=== PATIENT | female | born 1945 | race Caucasian/White ===

== ENCOUNTER 2024-03-09 17:08 | Inpatient (IN) | payer MEDICARE, BC ==
[2024-03-09 17:43] LABS: Bacteria/HPF None Seen HPF (None Seen); Bilirubin Negative (Negative); Blood, Urine Negative (Negative); CAUTI Indications for Culture Alt mental st,lethar; Clarity Clear (Clear); Glucose, Urine (Dipstick) Normal (Negative); Ketone, Urine Negative (Negative); Leukocyte Negative Leu/uL (Negative); Nitrite Negative (Negative); Protein, Urine (Dipstick) Negative (Neg-Trace); RBC/HPF 0-3 HPF (0-3); Specific Gravity, Urine 1.013 (1.002-1.036); Squamous Epithelial None Seen HPF (0-3); Urobilinogen Normal mg/dL (Less than 2); WBC/HPF 0-3 HPF (0-3); pH, Urine 5.5 (5.0-9.0)
[2024-03-09 17:44] LABS: Urine Culture Reflex No No
[2024-03-09 17:46] LABS: Amphetamine Not Detected (NotDetected); Barbiturates Screen Not Detected (NotDetected); Benzodiazepine Screen Not Detected (NotDetected); Cocaine Metabolite Screen Not Detected (NotDetected); Methadone Not Detected (NotDetected); Methamphetamine Not Detected (NotDetected); Opiate Screen Not Detected (NotDetected); Oxycodone Screen Not Detected (NotDetected); Phencyclidine (PCP) Not Detected (NotDetected); THC/Cannabinoid Screen Not Detected (NotDetected); Tricyclic Screen Not Detected (NotDetected)
[2024-03-09 17:50] LABS: #Basophils 0.03 10x3/uL (0.0-0.2); %Basophils 0.5 % (0.0-1.0); %Eosinophils 4.2 % (0.0-10.0); %Lymphocytes 11.7 % (21.0-51.0); %Monocytes 7.3 % (0.0-10.0); Hematocrit 37.4 % (36.0-47.0); Hemoglobin 12.5 g/dL (12.0-16.0); Mean Corpuscular HGB CONC 33.4 g/dL (32.0-36.0); Mean Corpuscular Hemoglobin 29.6 pg (27.0-31.0); Mean Corpuscular Volume 88.6 fL (78.0-98.0); Mean Platelet Volume 11.1 fL (7.4-10.4); Platelet Count 266 10x3/uL (130-400); RBC Distribution Width 13.4 % (11.5-14.5); Red Blood Cell (RBC) Count 4.22 mill/uL (4.20-5.40)
[2024-03-09 18:02] LABS: Lipase 14 U/L (8-78)
[2024-03-09 18:04] LABS: Acetaminophen Less than 10 mcg/mL (Less than 10); Alcohol Less than 10.0 mg/dL (Less than 10); Salicylate Less than 8.0 mg/dL (Less than 8.0)
[2024-03-09 18:07] LABS: ALT (SGPT) 15 U/L (8-55); AST (SGOT) 27 U/L (5-34); Albumin 3.3 g/dL (3.4-4.8); Alkaline Phosphatase 78 U/L (40-110); Anion Gap 12 mmol/L (10-20); BUN (Urea Nitrogen) 14 mg/dL (9.8-20.1); Bilirubin, Total 0.4 mg/dL (0.2-1.2); CK (CPK) 123 U/L (29-168); Calc. Creatinine Clearance 0 mL/min (70-130); Calcium 8.7 mg/dL (7.8-10.44); Carbon Dioxide 22 mmol/L (23-31); Chloride 111 mmol/L (98-107); Estimated GFR 65; Globulin 2.3 g/dL (2.4-3.5); Glucose 142 mg/dL (83-110); Potassium 3.5 mmol/L (3.5-5.1); Protein, Total 5.6 g/dL (5.8-8.1); Sodium 141 mmol/L (136-145)
[2024-03-09 18:10] LABS: Troponin I Less than 0.010 ng/mL (< 0.028)
[2024-03-09] MEDS ORDERED: levETIRAcetam 500 MG (5 mL) VIAL ONE (18:12)
[2024-03-09 18:13] LABS: Analyzer IN Cardio ER
[2024-03-09 18:14] LABS: Actual Bicarbonate (HCO3v) 23.4 mEq/L (22-28); Base Excess -2.8 mEq/L (-2.0 to +3.0); Calcium, Ionized (venous) 1.14 mmol/L (1.16-1.32); Chloride (VBG) 108 mmol/L (98-106); Hematocrit-VBG 39 % (36.0-47.0); Hemoglobin (Hb) 13.3 g/dL (11.7-16.1); Potassium (VBG) 3.38 mmol/L (3.70-5.30); Sodium 142 mmol/L (133-146); pH (venous) 7.321 (7.32-7.43)
[2024-03-09 18:49] LABS: PTT 24.9 sec (22.9-36.1)
[2024-03-09] MEDS ORDERED: EPINEPHrine 1 MG/ML VIAL ONE (18:49)
[2024-03-09] MEDS ORDERED: Vancomycin 1 GM VIAL ONE (18:50)
[2024-03-09] MEDS ORDERED: Lidocaine 1% (PF) 30 ML VIAL ONE (18:50)
[2024-03-09] MEDS ORDERED: Thrombin 5000 UNITS/5 ML VIAL ONE (18:50)
[2024-03-09] MEDS ORDERED: Mannitol 12.5 GM/50 ML ONE ×2 (18:57→19:04)
[2024-03-09] MEDS ORDERED: PROPOFOL 20 ML ONE (19:25)
[2024-03-09] MEDS ORDERED: fentaNYL PF 100 MCG/2 ML SYRINGE ONE ×2 (19:25→20:49)
[2024-03-09] MEDS ORDERED: Lidocaine 2% PF 5 ML VIAL ONE (19:25)
[2024-03-09] MEDS ORDERED: Rocuronium Bromide 10 MG/ML (10ML VIAL) ONE (19:27)
[2024-03-09] MEDS ORDERED: SUCCINYLCHOLINE/SOD CL,ISO/PF 200 MG/10 ML SYRINGE FS ONE (19:27)
[2024-03-09] MEDS ORDERED: PHENYLEPHRINE-NS 100 MCG/ML 10 ML SYRINGE ONE (19:47)
[2024-03-09] MEDS ORDERED: CEFAZOLIN 1 GM VIAL ONE (19:53)
[2024-03-09] MEDS ORDERED: ePHEDrine Sulfate 50 MG/10 ML VIAL ONE (19:58)
[2024-03-09] MEDS ORDERED: Phenylephrine 10 MG/ML VIAL ONE ×2 (20:09)
[2024-03-09] MEDS ORDERED: Dexamethasone 20 MG/5 ML VIAL ONE (20:25)
[2024-03-09] MEDS ORDERED: Dexmedetomidine 200 MCG/2 ML VIAL ONE ×2 (20:25→20:28)
[2024-03-09] MEDS ORDERED: Sodium Chloride 0.9% 100 ML ONE (20:28)
[2024-03-09] MEDS ORDERED: Sodium Chloride 0.9% 250 ML 500 ML ONE (20:28)
[2024-03-09] MEDS ORDERED: Acetaminophen 650 MG Suppository PR PRN (21:11)
[2024-03-09] MEDS ORDERED: Acetaminophen 325 MG TAB PO PRN (21:11)
[2024-03-09] MEDS ORDERED: hydrALAZINE 20 MG/ML VIAL SLOW IVP PRN (21:11)
[2024-03-09] MEDS ORDERED: Propofol BOLUS 1,000 MG/100 ML VIAL IV PRN (21:15)
[2024-03-09] MEDS ORDERED: Propofol 1,000 MG/100 ML VIAL IV PRN (21:15)
[2024-03-09] MEDS ORDERED: Morphine 2 MG/ML VIAL SLOW IVP PRN (21:15)
[2024-03-09] MEDS ORDERED: niCARdipine 25 MG in Sodium Chloride 0.9% 250 ML 250 ML IVPB PRN (21:15)
[2024-03-09] MEDS ORDERED: Fentanyl BOLUS 250 ML IVPB PRN (21:15)
[2024-03-09] MEDS ORDERED: Lorazepam 2 MG/ML VIAL SLOW IVP PRN (21:15)
[2024-03-09] MEDS ORDERED: DISCONTINUE PREVIOUS NARCOTIC PAIN MEDICATIONS AND BENZODIAZEPINES FS SCH (21:15)
[2024-03-09 21:32] LABS: Actual Bicarbonate (HCO3a) 20.4 mEq/L (22-28); CO2 Tension 27.7 mmHg (35.0-45.0); Carboxyhemoglobin (COHb) 0.3 gm% (0.0-3.0); Hematocrit-ABG 34 % (36.0-47.0); Hemoglobin (Hb) 11.5 g/dL (12.0-16.0); Potassium - ABG Lab 3.49 mmol/L (3.70-5.30); pH, Arterial 7.484 (7.35-7.45)
[2024-03-09 21:33] LABS: ALV-art Gradient 191.875 mmHg (0-20); Analyzer IN Cardio ER; Calcium, Ionized (arterial) 1.11 mmol/L (1.12-1.30); Puncture Site Arterial Line
[2024-03-09] MEDS: NOREPINEPHRINE 8 MG/250 ML-D5W 250 ML IVPB SCH (21:40)
[2024-03-09] MEDS: Albumin 25% 25 GM (100 mL) BOT IVPB SCH (21:41)
[2024-03-09] MEDS: Albumin 25% 100 ML ONE (21:42)
[2024-03-09] MEDS: Sodium Chloride 0.9% 1,000 ML IV SCH (21:43)
[2024-03-09] MEDS: Ventilator Sedation Protocol 1 EACH FS ONE (21:54)
[2024-03-09] MEDS: Fentanyl CADD 100 ML IV SCH (22:26)
[2024-03-09] MEDS: levETIRAcetam 500 MG (5 mL) VIAL SLOW IVP SCH (22:26)
[2024-03-09 22:41] VITALS: BMI 20.8
[2024-03-09] MEDS ORDERED: Dextrose 50% Abboject 50 ML SYRINGE SLOW IVP PRN (22:59)
[2024-03-09] MEDS ORDERED: Dextrose 5% in Water 1,000 ML IV PRN (22:59)
[2024-03-09] MEDS ORDERED: Glucagon 1 MG/ML KIT IM PRN (22:59)
[2024-03-09] MEDS ORDERED: Electrolyte Replacement Protocol 1 EACH FS SCH (23:23)
[2024-03-09] MEDS: Potassium Chloride 20 MEQ in Premix 1 BAG IVPB SCH (23:39)
[2024-03-10 04:02] LABS: #Basophils Less than 0.03 10x3/uL (0.0-0.2); #Eosinophils Less than 0.03 10x3/uL (0.0-0.7); %Basophils 0.1 % (0.0-1.0); %Lymphocytes 5.7 % (21.0-51.0); %Monocytes 2.8 % (0.0-10.0); %Neutrophils 90.8 % (42.0-75.0); Hemoglobin 10.5 g/dL (12.0-16.0); Mean Corpuscular HGB CONC 33.9 g/dL (32.0-36.0); Mean Corpuscular Hemoglobin 29.9 pg (27.0-31.0); Mean Corpuscular Volume 88.3 fL (78.0-98.0); Mean Platelet Volume 11.1 fL (7.4-10.4); Platelet Count 194 10x3/uL (130-400); RBC Distribution Width 13.4 % (11.5-14.5); Red Blood Cell (RBC) Count 3.51 mill/uL (4.20-5.40)
[2024-03-10 04:22] LABS: Anion Gap 12 mmol/L (10-20); BUN (Urea Nitrogen) 10 mg/dL (9.8-20.1); Calc. Creatinine Clearance 17 mL/min (70-130); Calcium 8.3 mg/dL (7.8-10.44); Carbon Dioxide 19 mmol/L (23-31); Chloride 112 mmol/L (98-107); Estimated GFR 67; Glucose 163 mg/dL (83-110); Sodium 139 mmol/L (136-145)
[2024-03-10] MEDS: CEFAZOLIN 2 GM in Sodium Chloride 0.9% 100 ML IVPB SCH (05:02)
[2024-03-10] MEDS: Famotidine/PF 20 mg/2ml Vial SLOW IVP SCH (07:41)
[2024-03-10] MEDS: levETIRAcetam 500 MG (5 mL) VIAL SLOW IVP SCH (07:41)
[2024-03-10] MEDS: FLU (Fluarix Triv) TS24-25(6MOS UP)/PF 45 MCG/0.5 ML Syringe IM ONE (07:43)
[2024-03-10] MEDS ORDERED: Morphine 2 MG/ML VIAL SLOW IVP PRN (08:56)
[2024-03-10] MEDS: Ondansetron PF 4 MG/2 ML Vial IVP PRN (08:56)
[2024-03-10] MEDS ORDERED: Acetaminophen/Codeine 30-300mg Tablet PO PRN (08:56)
[2024-03-10] MEDS: Morphine 2 MG/ML VIAL SLOW IVP PRN (20:17)
[2024-03-11 03:30] LABS: #Basophils 0.03 10x3/uL (0.0-0.2); %Basophils 0.3 % (0.0-1.0); %Eosinophils 0.5 % (0.0-10.0); %Lymphocytes 11.1 % (21.0-51.0); %Monocytes 11.5 % (0.0-10.0); %Neutrophils 76.2 % (42.0-75.0); Hematocrit 30.1 % (36.0-47.0); Hemoglobin 9.9 g/dL (12.0-16.0); Mean Corpuscular HGB CONC 32.9 g/dL (32.0-36.0); Mean Corpuscular Hemoglobin 29.6 pg (27.0-31.0); Mean Corpuscular Volume 90.1 fL (78.0-98.0); Mean Platelet Volume 11.2 fL (7.4-10.4); Platelet Count 165 10x3/uL (130-400); RBC Distribution Width 13.6 % (11.5-14.5); Red Blood Cell (RBC) Count 3.34 mill/uL (4.20-5.40)
[2024-03-11 03:47] LABS: ALT (SGPT) 9 U/L (8-55); AST (SGOT) 14 U/L (5-34); Albumin 3.1 g/dL (3.4-4.8); Alkaline Phosphatase 71 U/L (40-110); Anion Gap 10 mmol/L (10-20); BUN (Urea Nitrogen) 10 mg/dL (9.8-20.1); Bilirubin, Total 0.6 mg/dL (0.2-1.2); Calc. Creatinine Clearance 63 mL/min (70-130); Calcium 8.4 mg/dL (7.8-10.44); Carbon Dioxide 22 mmol/L (23-31); Chloride 108 mmol/L (98-107); Estimated GFR 89; Globulin 2.4 g/dL (2.4-3.5); Glucose 127 mg/dL (83-110); Potassium 3.4 mmol/L (3.5-5.1); Protein, Total 5.5 g/dL (5.8-8.1); Sodium 137 mmol/L (136-145)
[2024-03-11] MEDS: Potassium Chloride 20 MEQ in Premix 1 BAG IVPB SCH (05:20)
[2024-03-11] MEDS ORDERED: hydrALAZINE 20 MG/ML VIAL SLOW IVP PRN (08:30)
[2024-03-11] MEDS ORDERED: niCARdipine 25 MG in Sodium Chloride 0.9% 250 ML 250 ML IVPB PRN (08:30)
[2024-03-11] MEDS: Sodium Chloride 0.9% 500 ML IV SCH (08:43)
[2024-03-11 13:12] LABS: Potassium 3.8 mmol/L (3.5-5.1)
[2024-03-11] MEDS ORDERED: Famotidine 20 MG TAB PO SCH (21:00)
[2024-03-11] MEDS: Famotidine/PF 20 mg/2ml Vial SLOW IVP SCH (21:24)
[2024-03-12 04:43] LABS: #Basophils 0.05 10x3/uL (0.0-0.2); %Basophils 0.6 % (0.0-1.0); %Eosinophils 2.3 % (0.0-10.0); %Lymphocytes 13.9 % (21.0-51.0); %Monocytes 11.7 % (0.0-10.0); %Neutrophils 71.1 % (42.0-75.0); Hematocrit 31.5 % (36.0-47.0); Hemoglobin 10.3 g/dL (12.0-16.0); Mean Corpuscular HGB CONC 32.7 g/dL (32.0-36.0); Mean Corpuscular Volume 91.8 fL (78.0-98.0); Mean Platelet Volume 11.5 fL (7.4-10.4); Platelet Count 158 10x3/uL (130-400); RBC Distribution Width 13.7 % (11.5-14.5); Red Blood Cell (RBC) Count 3.43 mill/uL (4.20-5.40)
[2024-03-12 05:19] LABS: ALT (SGPT) 8 U/L (8-55); AST (SGOT) 15 U/L (5-34); Albumin 2.9 g/dL (3.4-4.8); Alkaline Phosphatase 70 U/L (40-110); Anion Gap 11 mmol/L (10-20); BUN (Urea Nitrogen) 10 mg/dL (9.8-20.1); Bilirubin, Total 0.5 mg/dL (0.2-1.2); Calc. Creatinine Clearance 68 mL/min (70-130); Calcium 8.6 mg/dL (7.8-10.44); Carbon Dioxide 24 mmol/L (23-31); Chloride 107 mmol/L (98-107); Estimated GFR 91; Globulin 2.6 g/dL (2.4-3.5); Glucose 96 mg/dL (83-110); Potassium 3.3 mmol/L (3.5-5.1); Protein, Total 5.5 g/dL (5.8-8.1); Sodium 139 mmol/L (136-145)
[2024-03-12] MEDS: Potassium Chloride 20 MEQ in Premix 1 BAG IVPB SCH ×2 (08:12→23:06)
[2024-03-12 14:30] LABS: Potassium 3.4 mmol/L (3.5-5.1)
[2024-03-12] MEDS: Haloperidol Lactate 5 MG/ML VIAL SLOW IVP SCH (19:58)
[2024-03-12] MEDS: Magnesium 2 GM/50 ML(in water) 2 GM in Premix 1 BAG IVPB SCH (21:47)
[2024-03-12] MEDS: Potassium Chloride 20 MEQ TAB PO SCH (23:54)
[2024-03-13 03:57] LABS: #Basophils 0.05 10x3/uL (0.0-0.2); %Basophils 0.6 % (0.0-1.0); %Eosinophils 3.8 % (0.0-10.0); %Lymphocytes 12.9 % (21.0-51.0); %Monocytes 10.9 % (0.0-10.0); %Neutrophils 71.3 % (42.0-75.0); Hematocrit 31.6 % (36.0-47.0); Hemoglobin 10.7 g/dL (12.0-16.0); Mean Corpuscular HGB CONC 33.9 g/dL (32.0-36.0); Mean Corpuscular Hemoglobin 29.4 pg (27.0-31.0); Mean Corpuscular Volume 86.8 fL (78.0-98.0); Mean Platelet Volume 11.3 fL (7.4-10.4); Platelet Count 187 10x3/uL (130-400); RBC Distribution Width 13.2 % (11.5-14.5); Red Blood Cell (RBC) Count 3.64 mill/uL (4.20-5.40)
[2024-03-13 04:37] LABS: ALT (SGPT) 8 U/L (8-55); AST (SGOT) 20 U/L (5-34); Albumin 3.2 g/dL (3.4-4.8); Alkaline Phosphatase 68 U/L (40-110); Anion Gap 14 mmol/L (10-20); BUN (Urea Nitrogen) 11 mg/dL (9.8-20.1); Bilirubin, Total 0.5 mg/dL (0.2-1.2); Calc. Creatinine Clearance 63 mL/min (70-130); Calcium 8.9 mg/dL (7.8-10.44); Carbon Dioxide 20 mmol/L (23-31); Chloride 106 mmol/L (98-107); Estimated GFR 92; Globulin 3.2 g/dL (2.4-3.5); Glucose 96 mg/dL (83-110); Potassium 3.9 mmol/L (3.5-5.1); Protein, Total 6.4 g/dL (5.8-8.1); Sodium 136 mmol/L (136-145)
[2024-03-15 14:36] VITALS: BMI 20.5
[2024-03-16 09:07] LABS: Anion Gap 12 mmol/L (10-20); BUN (Urea Nitrogen) 18 mg/dL (9.8-20.1); Calc. Creatinine Clearance 60 mL/min (70-130); Calcium 9.6 mg/dL (7.8-10.44); Carbon Dioxide 26 mmol/L (23-31); Chloride 105 mmol/L (98-107); Estimated GFR 86; Glucose 97 mg/dL (83-110); Potassium 4.4 mmol/L (3.5-5.1); Sodium 139 mmol/L (136-145)
[2024-03-16 11:26] VITALS: BP 125/76; TEMP 98.3
== END 2024-03-16 15:34 | disposition home or self-care (01) | DRG 23 ==
LOC: ERS 17:08 → SDC/OP 19:27 → CCU 21:13 → EDBD 21:13 → 2SE 03-12 15:38
PROVIDERS: ADMIT Surgery; ATTEND Internal Medicine
PROC: 4A10X4Z Monitoring of Central Nervous Electrical Activity, External Approach (ICD-10-PCS; principal; 2024-03-09)
PROC: 00C70ZZ Extirpation of Matter from Cerebral Hemisphere, Open Approach (ICD-10-PCS; 2024-03-09)
PROC: 4A033R1 Measurement of Arterial Saturation, Peripheral, Percutaneous Approach (ICD-10-PCS; 2024-03-09)
DX: I61.8 Other nontraumatic intracerebral hemorrhage (principal); J96.00 Acute respiratory failure, unspecified whether with hypoxia or hypercapnia; Q28.2 Arteriovenous malformation of cerebral vessels; R57.1 Hypovolemic shock; E87.20 Acidosis, unspecified; E87.3 Alkalosis; E87.6 Hypokalemia
CPT/HCPCS: 36415; 36416; 51701; 70450; 70496; 71045; 72125; 80048; 80053; 80306; 80307; 81001; 82140; 82550; 82805; 83690; 83735; 84443; 84484; 85025; 85610; 85730; 86850; 86900; 86901; 88304; 88313; 93005; 94002; 94003; 96365; 96375; C1713; J0171; J0690; J1100; J1630; J1953; J2150; J2272; J2371; J2405; J2704; J3010; J3370; J3475; J3480; J3490; J7030; J7050; P9047